=== PATIENT | male | born 1965 | race Caucasian/White ===

== ENCOUNTER → 2023-05-13 14:53 | Outpatient (REF) | payer OTHER, SELFPAY | LOC: DHCBS HW 14:53 | PROVIDERS: ATTENDING PHYSICIAN Internal Medicine Cardiovascular Disease; FAMILY PHYSICIAN Family Medicine | DX: R94.31 Abnormal electrocardiogram [ECG] [EKG] (principal) | CPT/HCPCS: 93306 ==

== ENCOUNTER 2025-02-27 19:19 | Emergency (ER) | payer OTHER, SELFPAY ==
[2025-02-27 19:20] VITALS: BP 112/81
[2025-02-27 20:45] VITALS: BP 114/72
[2025-02-27 20:58] LABS: Hematocrit 51.2 % (39.0-52.0); Hemoglobin 17.4 g/dL (13.0-18.0); Mean Corp Hgb Conc. 34.0 g/dL (33.0-37.0); Mean Corpuscular Volume 89.8 fL (80.0-94.0); Nucleated Red Blood Cells % 0 % (-); Platelet Count 173 10^3/uL (130-400); Red Cell Dist. Width 14.1 % (11.5-14.5)
[2025-02-27 21:00] VITALS: BP 114/77
[2025-02-27 21:51] LABS: Blood Urea Nitrogen 31 mg/dl (9-20); Calcium 9.5 mg/dl (8.4-10.2); Carbon Dioxide 22 mmol/L (22-30); Chloride 101 mmol/L (98-107); Glucose 126 mg/dl (70-99); Lipase 53 U/L (23-300); Sodium 133 mmol/L (135-145); eGFR > 60.00
[2025-02-27] MEDS: NSS 1000 IV (21:52)
[2025-02-27] MEDS: ZOFRAN 4 MG IV (21:52)
[2025-02-27 22:00] VITALS: BP 101/67
[2025-02-27] MEDS: IMODIUM 2 MG PO (23:12)
--- NOTE | 2025-02-27 23:22 | ED.GENMED ---
History of Present Illness
General
Chief Complaint: Abdominal Symptoms
Source: patient
Exam Limitations: none
Time Seen by Provider: 02/27/25 20:43
Nursing documentation reviewed up to this point in time: agreed with
History of Present Illness
History of Present Illness:
59-year-old male past medical history of hypertension hyperlipidemia presenting to the emergency department today with concerns of nausea vomiting diarrhea starting roughly 20 hours prior to arrival. This was a few hours after eating [employer] with
his son who also had very similar symptoms. Ongoing nausea and vomiting throughout the day. Multiple episodes no blood no fever no chest pain or shortness of breath.
Past History
Past History
ED Past Medical History: HTN and Other (Kidney stones); Negative Hypercholesterolemia or NIDDM
ED Past Surgical History: None
Social History
Tobacco: Non-smoker
Alcohol: None
Personal:
Living: with family
Review of Systems
Review of Systems
Allergies reviewed?: Yes
All Other Systems: ROS reviewed and negative except as documented in HPI and ROS
Phy Exam
Physical Exam
Physical Exam:
GENERAL: Alert , in no apparent distress
EYE: pupils equal and reactive
NECK: Supple, no significant adenopathy.
ENT: o/p clr, mmm.
CARDIAC: Regular rate and rhythm .
LUNGS: Clear breath sounds bilaterally, no acute respiratory distress, no wheezes/rales/rhonchi
ABDOMEN: Soft, without focal tenderness, no r/g, no cvat
NEUROLOGICAL: Alert and oriented, no focal neuro deficits
SKIN: Warm and dry, skin intact.
MUSCULOSKELETAL: No edema, well perfused.
PSYCH: Normal and appropriate interaction.
Course
Orders/Labs/Results
Orders:
Orders
02/27/25 20:51
Basic Metabolic Panel Urgent
Complete Blood Count/With Diff Urgent
Lipase Urgent
02/27/25 21:39
0.9% Sodium Chloride 1000 ml [Nss] 1,000 ml IV BOLUS
Ondansetron Injectable [Zofran] 4 mg IV NOW STA
02/27/25 22:55
Loperamide [Imodium] 2 mg PO NOW STA
Abnormal Lab Results
02/27/25
20:51
WBC 12.5 H 10^3/uL
(4.8-10.8)
Abs Immat Gran (auto) 0.1 H 10^3/uL
(0-0.05)
Absolute Neuts (auto) 11.4 H 10^3/uL
(1.4-6.5)
Absolute Lymphs (auto) 0.4 L 10^3/uL
(1.2-3.4)
Absolute Monos (auto) 0.7 H 10^3/uL
(0.1-0.6)
Immature Gran % 0.6 H %
(0-0.5)
Neutrophils % 90.6 H %
(42.2-75.2)
Lymphocytes % 3.3 L %
(20.5-51.1)
Sodium 133 L mmol/L
(135-145)
BUN 31 H mg/dl
(9-20)
Glucose 126 H mg/dl
(70-99)
02/27/25 20:51
02/27/25 20:51
Vital Signs
Initial and Last Documented VS:
Initial Vital Signs
Temp Pulse Resp BP Pulse Ox
98.9 F 116 16 112/81 94
02/27/25 19:20 02/27/25 19:20 02/27/25 19:20 02/27/25 19:20 02/27/25 19:20
Last Documented Vital Signs
Temp Pulse Resp BP Pulse Ox
98.9 F 74 23 101/67 94
02/27/25 19:20 02/27/25 22:15 02/27/25 22:15 02/27/25 22:00 02/27/25 22:15
MDM/Problems Addressed
MDM/Problems Addressed:
59-year-old male presenting to the emergency department today with concerns of nausea vomiting diarrhea. No abdominal pain here. Initially tachycardic but improving after receiving fluids and Zofran. Slight white count on labs also elevated BUN
to creatinine ratio. Patient feeling much better after after receiving fluids and Zofran. Otherwise patient symptoms likely consistent with stomach bug plan for close outpatient follow-up and outpatient treatment. Return precautions given.
*Pulse Oximetry
SaO2: 94
Oxygen Mode of Delivery: Room air
Patient hypoxic: no (94)
*Critical Care Note
Total Time (30-74mins, 75-104mins- exclusive of procedures): Not Applicable
ED Attending Note
-
Portions of this chart may have been created with voice recognition software.� Occasional wrong word or��sound alike� substitutions may have occurred due to the inherent limitations of voice recognition software.
Discharge Plan
Departure
Patient Disposition: Home (Routine Discharge)
Date of Disposition: 02/27/25
Time of Disposition: 23:25
Patient with high blood pressure during this ER visit?: No
Condition: Good
Covid-19: Not Applicable
Discharge Problem:
Vomiting and diarrhea
Instructions: Nausea and Vomiting, Adult (DC)
Prescriptions:
New
ondansetron 4 mg tablet,disintegrating
4 mg PO Q6H PRN (Reason: nausea and vomiting) Qty: 7 0RF
No Action
quinapril 20 MG tablet
20 mg PO HS
ondansetron 4 MG tablet,disintegrating
4 mg PO Q8HPRN PRN (Reason: Nausea/Vomiting) Qty: 15 0RF
oxycodone-acetaminophen 5 MG/325 MG tablet
1 tab PO Q4HPRN PRN (Reason: Pain) Qty: 15 0RF
tamsulosin 0.4 MG capsule
0.4 mg PO DAILY Qty: 5 0RF
Referrals:
Jordan Steward CRNP [Family Provider]
Activity Restrictions/Additional Instructions:
You came to the emergency department today with concerns of nausea vomiting diarrhea. This is likely from food poisoning. Please take the prescribed Zofran and drink plenty of fluids including electrolytes. Return for any worsening, new or
concerning symptoms.
Interventions
Interventions:
*Risk Screen - Suicide Last Done: 02/27/25 20:58
*General Assessment Last Done: 02/27/25 20:58
*Neglect/Abuse Screening Last Done: 02/27/25 20:58
*ED COVID-19 Vaccine History Last Done: 02/27/25 20:58
*ED Influenza Vaccine History Last Done: 02/27/25 20:58
[facility] Fall Risk Assessment Tool Last Done: 02/27/25 20:58
[facility]-Fdjsym-Jiwgibmpoo Assessment Last Done: 02/27/25 20:54
Discharge Date and Time
Print Language: [place]
== END 2025-02-28 00:18 | disposition home or self-care (01) ==
LOC: EMR 19:19
PROVIDERS: Physician Assistant; EMERGENCY PHYSICIAN Emergency Medicine
DX: R11.2 Nausea with vomiting, unspecified (principal); R19.7 Diarrhea, unspecified; I10 Essential (primary) hypertension; E78.5 Hyperlipidemia, unspecified; Z87.442 Personal history of urinary calculi
CPT/HCPCS: 99284; 96374; 96361; 80048; 83690; 85025